=== PATIENT | male | born 1960 | race Caucasian/White ===

== ENCOUNTER 2017-01-17 12:30 | Emergency (ER) | payer SELFPAY ==
[~2017-01-17 12:30] MED LIST: KEFLEX PO; LEXAPRO PO; LORTAB 10/500 T1 TAB PO; UNK ABX
== END 2017-01-17 12:32 | disposition home or self-care (01) ==
LOC: CED 12:30
DX: M06.9 Rheumatoid arthritis, unspecified (principal); M13.171 Monoarthritis, not elsewhere classified, right ankle and foot; I25.10 Atherosclerotic heart disease of native coronary artery without angina pectoris
CPT/HCPCS: 96372; 99283; J2930